=== PATIENT | female | born 1995 | race Caucasian/White ===

== ENCOUNTER 2016-09-05 09:17 | Emergency (ER) | payer BC ==
[2016-09-05] MEDS ORDERED: NS 0.9% 1000 ML* 2,000 ML IV ONE (09:36)
[2016-09-05] MEDS ORDERED: Ondansetron INJ* 2 MG/ML VIAL IV ONE (09:36)
[2016-09-05 09:53] LABS: Urine Bacteria 1+ (Absent); Urine Bilirubin Negative (Negative); Urine Glucose Negative (Negative); Urine Nitrite Negative (Negative)
[2016-09-05 10:02] LABS: Add Diff/Slide Review? Slide Review Added; Comments Flag Yes; Hematocrit 42 % (35-47); Mean Corpuscular HGB Conc 34 g/dl (31-36); Mean Corpuscular Hemoglobin 30 pg (27-31); Mean Corpuscular Volume 90 fL (80-97); Mean Platelet Volume 9 um3 (7.4-10.4); Red Blood Count 4.68 10^6/ul (4.0-5.4); Red Cell Distribution Width 13 % (10.5-15); White Blood Count 6.4 10^3/ul (3.5-10.8)
--- NOTE | 2016-09-05 10:02 | ED ---
Influenza-Like Illness - HPI Summary HPI Summary: Patient presents with 6 days of nausea, vomiting, congestion, body aches and fever. She went to Urgent Care earlier in the week and was diagnosed with a virus. When she didn't improve she went to [place] 3 days ago where she was given IV fluids and Zofran with short term relief. Her nausea continued and she has vomited daily. She is unable to keep food or fluids down. She continues to have a low grade temperature. She denies sore throat, TURNER, chest congestion or SOB. She developed a cough yesterday and mild lower back pain. No abdominal pain , diarrhea or constipation. She has mild burning when she begins to urinate but no urgency or frequency. - History of Current Complaint Chief Complaint: EDNauseaVomitDiarrh Time Seen by Provider: 09/05/16 09:28 Hx Obtained From: Patient Onset/Duration: Gradual Onset Severity: Moderate Associated Signs & Symptoms: Fever, Cough, Vomiting Related Hx: Possible Flu/Infectious Exposure - student at [employer] - Allergy/Home Medications Allergies/Adverse Reactions: Allergies Allergy/AdvReac Type Severity Reaction Status Date / Time Sulfa Antibiotics Allergy Rash Verified 09/05/16 09:19 PMH/Surg Hx/FS Hx/Imm Hx Endocrine/Hematology History: Denies: Hx Diabetes Cardiovascular History: Denies: Hx Congestive Heart Failure, Hx Hypertension History: Denies: Hx Renal Disease Psychiatric History: Reports: Hx Anxiety - Surgical History Surgery Procedure, Year, and Place: wisdom teeth Infectious Disease History: No Infectious Disease History: Reports: Traveled Outside the [place] in Last 30 Days - [place] Denies: Hx Clostridium Difficile, Hx Hepatitis, Hx Human Immunodeficiency Virus (HIV), Hx of Known/Suspected MRSA, Hx Shingles, Hx Tuberculosis, Hx Known/ Suspected VRE, Hx Known/Suspected VRSA, History Other Infectious Disease - Family History Known Family History: Positive: None - Social History Occupation: Student Lives: With Family Alcohol Use: Occasionally Substance Use Type: Reports: None Smoking Status (MU): Never Smoked Tobacco Review of Systems Positive: Fever, Fatigue. Negative: Chills Negative: Chest Pain Positive: Cough. Negative: Shortness Of Breath Positive: Vomiting, Nausea. Negative: Abdominal Pain, Diarrhea Positive: burning, flank pain - mild bilateral. Negative: dysuria, discharge, frequency Positive: Myalgia Negative: Headache, Weakness All Other Systems Reviewed And Are Negative: Yes Physical Exam Triage Information Reviewed: Yes Vital Signs On Initial Exam: Initial Vitals Temp Pulse Resp BP Pulse Ox 98.6 F 107 18 102/72 100 09/05/16 09:19 09/05/16 09:19 09/05/16 09:19 09/05/16 09:19 09/05/16 09:19 Vital Signs Reviewed: Yes Appearance: Positive: Well-Appearing, No Pain Distress, Well-Nourished Skin: Positive: Warm, Skin Color Reflects Adequate Perfusion, Dry, Soft Head/Face: Positive: Normal Head/Face Inspection Eyes: Positive: EOMI, TK, Conjunctiva Clear ENT: Positive: Hearing grossly normal, Pharynx normal, TMs normal Neck: Positive: Supple, Nontender, No Lymphadenopathy Respiratory/Lung Sounds: Positive: Clear to Auscultation, Breath Sounds Present Cardiovascular: Positive: Tachycardia Abdomen Description: Positive: Nontender, Soft, CVA Tenderness (R) - mild, CVA Tenderness (L) - mild. Negative: Distended, Guarding Bowel Sounds: Positive: Present Musculoskeletal: Negative: Edema Left, Edema Right Neurological: Positive: Sensory/Motor Intact, Alert, Oriented to Person Place, Time, NV Bundle Intact Distally Psychiatric: Positive: Affect/Mood Appropriate AVPU Assessment: Alert Diagnostics - Vital Signs Vital Signs Temp Pulse Resp BP Pulse Ox 09/05/16 09:19 98.6 F 107 18 102/72 100 - Laboratory Lab Results: Postive Monospot. Result Diagrams: 09/05/16 09:43 09/05/16 09:43 Lab Statement: Any lab studies that have been ordered have been reviewed, and results considered in the medical decision making process. Re-Evaluation - Re-Evaluation First Eval Re-Evaluation Time: 10:50 Change: Improved Comment: Patient feeling a little better. Will give a second liter of fluid. Flu Symptom Course/Dx - Diagnoses Differential Diagnosis/HQI/PQRI: Positive: Bronchitis, Influenza, Pneumonia, RSV Provider Diagnoses: Mononucleosis Discharge - Discharge Plan Condition: Stable Disposition: HOME Prescriptions: Ondansetron ODT TAB* [Zofran Odt TAB*] 4 mg PO Q6H PRN #20 tab.odt PRN Reason: Nausea Patient Education Materials: Mononucleosis (ED) [facility]errals: [facility] [Primary Care Provider] - Additional Instructions: Please use the anti-nausea medication and drink extra fluids to keep yourself hydrated. Get extra rest and follow-up with [facility] later in the week if your symptoms persist. Return to the emergency department if your symptoms worsen.
[2016-09-05 10:08] LABS: EBV Response NO; Manual Entry Verification HAN0055; Mono Internal Control QC Line Present
[2016-09-05 10:16] LABS: Add Path Review? YES; Immature Granulocytes 1 % (0-9); Neutrophil % 44 % (38-83); RBC Morphology Normal (Normal); Reactive Lymph % 30 % (0-6)
[2016-09-05 10:25] LABS: ALT 259 U/L (7-52); AST 224 U/L (13-39); Albumin 3.8 g/dL (3.2-5.2); Alkaline Phosphatase 133 U/L (34-104); Anion Gap 9 mmol/L (2-11); BUN/Creatinine Ratio 8.5 (8-20); Blood Urea Nitrogen 7 mg/dL (6-24); C Reactive Protein 32.98 mg/L (< 5.00); CO2 Carbon Dioxide 25 mmol/L (22-32); Calcium 9.3 mg/dL (8.6-10.3); Chloride 99 mmol/L (101-111); EGFR African American 113.2 (>60); Globulin 3.8 g/dL (2-4); Glucose 96 mg/dL (70-100); Potassium 3.6 mmol/L (3.5-5.0); Sodium 133 mmol/L (133-145); Total Protein 7.6 g/dL (6.4-8.9)
[2016-09-05 11:48] VITALS: BP 109/67
== END 2016-09-05 11:53 | disposition home or self-care (01) ==
LOC: ED 09:17
DX: B27.90 Infectious mononucleosis, unspecified without complication (principal); Z88.2 Allergy status to sulfonamides
CPT/HCPCS: 36415; 80053; 81003; 81015; 84702; 85025; 85060; 86140; 86308; 87086; 99283; J2405